=== PATIENT | male | born 1975 | race African-American/Black ===

== ENCOUNTER 2021-08-18 05:57 | Observation (INO) | payer OTHER ==
[2021-08-18 06:13] VITALS: BMI 27.9
[2021-08-18] MEDS ORDERED: ASPIRIN 81 MG CHEWABLE TABLETS PO ONE (08:03)
[2021-08-18] MEDS ORDERED: LIDOCAINE 5% TOPICAL PATCH TP ONE (08:03)
[2021-08-18] MEDS ORDERED: ASPIRIN 81 MG CHEWABLE TABLETS ONE (08:19)
[2021-08-18] MEDS ORDERED: LIDOCAINE 5% TOPICAL PATCH ONE (08:19)
[2021-08-18 08:29] LABS: BASO % 0.9 % (0-2.0); HEMOGLOBIN 13.8 GM/dL (11.7-16.9); LYMPH % 50.2 % (8-40); MCH 28.8 pg (25.7-33.7); MCHC 33.8 g/dl (32.0-35.9); MEAN CELL VOLUME 85.4 fl (80-96); MEAN PLT VOLUME 9.3 fl (7.5-11.1); MONO % 9.1 % (3.8-10.2); NEUT % 38.8 % (42.8-82.8); PLATELET COUNT 199 10^3/uL (134-434); RBC 4.81 M/mm3 (4.00-5.60); RDW 14.1 % (11.9-15.9); WHITE BLOOD COUNT 3.7 K/mm3 (4.0-10.0)
[2021-08-18 08:40] LABS: INR 1.11 (0.83-1.09); PROTHROMBIN TIME (PATIENT) 12.4 SEC (9.7-13.0)
[2021-08-18 08:45] LABS: CHLORIDE 105 mmol/L (98-107); SODIUM 140 mmol/L (136-145)
[2021-08-18 08:49] LABS: ANION GAP 2 MMOL/L (8-16); BLOOD UREA NITROGEN 16.4 mg/dL (7-18); CALCIUM 9.3 mg/dL (8.5-10.1); CO2 32 mmol/L (21-32); GLUCOSE,RANDOM 107 mg/dL (74-106); MAGNESIUM 2.3 mg/dL (1.8-2.4)
[2021-08-18 08:53] LABS: BILIRUBIN,TOTAL 0.6 mg/dL (0.2-1); CREATININE 1.1 mg/dL (0.55-1.3); SGOT/AST 18 U/L (15-37); SGPT/ALT 27 U/L (13-61)
[2021-08-18 08:55] LABS: ALK PHOS 43 U/L (45-117); TOT PROT 7.8 g/dl (6.4-8.2)
[2021-08-18 13:41] VITALS: BP 135/72; PULSE 51
[2021-08-18] MEDS ORDERED: LIDOCAINE PATCH REMOVAL MC ONE (20:30)
== END 2021-08-18 14:29 | disposition home or self-care (01) ==
LOC: JER 05:57 → JERBED 11:10 → J4W 14:07
PROVIDERS: ADMIT Internal Medicine; ATTEND Internal Medicine
DX: R07.9 Chest pain, unspecified (principal); E78.5 Hyperlipidemia, unspecified; I10 Essential (primary) hypertension; R73.03 Prediabetes
CPT/HCPCS: 36415; 71046-TC-FY; 71275-TC; 80053; 83735; 84484; 85025; 85379; 85610; 85730; 93005; 93010; 93017; 93018; 99285-25; C9803; G0378; Q9967; U0003; U0005